=== PATIENT | male | born 1955 | race Caucasian/White ===

== ENCOUNTER 2018-02-17 06:11 | Day surgery (SDC) | payer BC ==
[2018-02-16 12:06] VITALS: BMI 33.9
[~2018-02-17 06:11] MED LIST: BUPIVACAINE HCL/PF 0.25% (2.5MG/ML) 10 ML VIAL IJ ONE; LIDO 2%/EPI 1:200000 PRESRVFRE (20 ML SDVIAL) INF ONE; ceFAZolin SODIUM 1 GM VIAL IVPB ONE
[2018-02-17] MEDS ORDERED: BUPIVACAINE HCL/PF 0.25% (2.5MG/ML) 10 ML VIAL ONE (07:15)
[2018-02-17] MEDS ORDERED: LIDOCAINE 1%/EPI 1:100000 (20 ML MULTI DOSE VIAL) ONE (07:15)
[2018-02-17] MEDS ORDERED: MIDAZOLAM HCL 2 MG/2 ML SINGLE DOSE VIAL ONE (07:45)
[2018-02-17] MEDS ORDERED: SEVOFLURANE 250 ML BTL ONE (08:01)
[2018-02-17] MEDS ORDERED: DESFLURANE GAS 240 ML BOTTLE IH ONE (08:01)
[2018-02-17] MEDS ORDERED: DEXAMETHASONE SOD PHOSPHATE 4 MG/1 ML VIAL ONE (08:16)
[2018-02-17] MEDS ORDERED: LIDOCAINE HCL/PF 2% SDV 5ML VIAL ONE (08:17)
[2018-02-17] MEDS ORDERED: PROPOFOL 20 ML ONE (08:17)
[2018-02-17] MEDS ORDERED: LIDO 2%/EPI 1:200000 PRESRVFRE (20 ML SDVIAL) INF ONE (08:28)
[2018-02-17] MEDS ORDERED: BUPIVACAINE HCL/PF 0.25% (2.5MG/ML) 10 ML VIAL IJ ONE (08:28)
[2018-02-17] MEDS ORDERED: ONDANSETRON 4 MG/2 ML VIAL IVPUSH PRN (08:52)
[2018-02-17] MEDS ORDERED: oxyCODONE HCL 5 MG TABLET PO PRN (08:52)
[2018-02-17] MEDS ORDERED: LACTATED RINGERS SOLUTION 1,000 ML IV SCH (09:00)
--- NOTE | 2018-02-17 09:14 | OP ---
Operative Note - Note: Operative Date: 02/17/18 Pre-Operative Diagnosis: internal drangement right knee Operation: arthroscopy right knee with partial MM Post-Operative Diagnosis: Same as Pre-op Surgeon: Donald Rodriguez Scrape Gatherer: Rene Montalvo Anesthesia: General Estimated Blood Loss (mls): 0 Operative Report Dictated: Yes
--- NOTE | 2018-02-17 09:20 | HP ---
Satellite [facility] - Chief Complaint Chief Complaint: right knee pain - Past Medical History Allergies/Adverse Reactions: Allergies Allergy/AdvReac Type Severity Reaction Status Date / Time bee venom protein (honey bee) Allergy Severe Difficulty Verified 02/16/18 12:06 Breathing - Current Medications Current Medications: Home Medications Medication Instructions Recorded Ascorbic Acid [Vitamin C] 1,000 mg PO DAILY 02/16/18 Cholecalciferol (Vitamin D3) 1,000 unit PO DAILY 02/16/18 [Vitamin D3] Tadalafil [Cialis] 5 mg PO DAILY 02/16/18 Tamsulosin HCl [Flomax] 0.4 mg PO HS 02/16/18 Oxycodone HCl/Acetaminophen 1 tab PO Q6H #10 tablet MDD 4 02/17/18 [Percocet 5-325 mg Tablet] Satellite Physical Exam - Physical Examination Vital Signs: Vital Signs Period Temp Pulse Resp BP Sys/[place] Pulse Ox Last 24 Hr 98.0 F-98.0 F 73-73 20-20 108-108/68-68 98 General Appearance: Well Nourished, Well Developed, Alert & Oriented x3 ENT: Clear Lung: Normal air movement Heart: Regular rate & rhythm Extremities: Other (right knee- + swelling, + ttp, decr rom, + mcmurrays, nvi MRi + mmt) Neurological: Intact, Alert, Oriented Satellite Impression/Plan - Impression/Plan Impression: right knee internal derangement Operative Procedure: right knee arthroscopy Date to be Performed: 02/17/18
[2018-02-17 10:37] VITALS: TEMP 97.5
--- NOTE | 2018-02-17 11:09 | SPEC ---
DATE OF OPERATION: 02/17/2018 PREOPERATIVE DIAGNOSIS: Internal derangement, right knee. POSTOPERATIVE DIAGNOSIS: Internal derangement, right knee. PROCEDURE: Arthroscopy, right knee, and partial medial meniscectomy. SURGICAL ATTENDING: Donald Rodriguez MD DIRECTOR [facility]: Rene Montalvo MD ANESTHESIA: General with LMA. CLOSURE: 4-0 nylon. COMPLICATIONS: None. CONDITION: To recovery room in stable condition. DESCRIPTION OF OPERATIVE PROCEDURE: Patient was taken to the operating room on February 17, 2018. General anesthesia with LMA was administered by the anesthesiologist. The right lower extremity was prepped and draped in the usual sterile fashion. The medial and lateral infrapatellar portal sites were infiltrated with 1% Xylocaine with epinephrine. Both portals were then made with a 15 blade followed by a blunt trocar. The scope was placed in the lateral infrapatellar portal and up into the suprapatellar pouch. The knee was inflated with a cocktail of 10 mL of 1% Xylocaine, 10 mL of 0.5% Marcaine, and 20 mL of arthroscopic saline. This was allowed to sit in the knee for a few minutes to allow the anesthetic to work intraarticularly. The scope was placed in the lateral infrapatellar portal and up into the suprapatellar pouch. The pouch was visualized to be clean. The medial and lateral gutters were visualized to be clean. The undersurface of the patella and trochlea were visualized to be intact. With valgus stress on the knee, the medial compartment was entered. The medial meniscus was visualized, probed, and found to have a complex tear of the posterior horn. This was debrided back to smooth stable meniscal tissue using a meniscal biter and arthroscopic shaver. The medial femoral condyle was run and found to be intact as well as the medial tibial plateau. At 90 degrees, the ACL was visualized, probed, and found to be intact. In the figure 4 position, the lateral compartment was entered. The lateral meniscus was visualized, probed, and found to be intact. The lateral femoral condyle was run and found to be intact as was the lateral tibial plateau. The knee was irrigated with copious amounts of irrigation and then the fluid was drained. The inferomedial portal was closed then with 4-0 nylon. Prior to pulling the trocar from the lateral infrapatellar portal, 20 mL of 0.5% Marcaine was infused into the knee for postoperative analgesia. The trocar was then pulled and the incision was closed with 4-0 nylon suture. A sterile pressure dressing was applied. Patient awakened from anesthesia and transferred to recovery in stable condition. No complication. Estimated blood loss negligible. Wild [id number]
[2018-02-17 11:16] VITALS: BP 112/70; PULSE 66
--- NOTE | 2018-02-18 16:31 | PATH ---
Surgical Pathology Report Patient Name: DIPAK LORENZO [facility]. Rec. #: [id number] /Age/Gender: 1955 (Age: 62) / M Account: [id number] Location: [facility] SUR[facility]ICAL Taken: 02/17/2018 Received: 02/17/2018 Reported: 02/18/2018 Physicians: Wild Villalpando M.D. Specimen(s) Received RIGHT KNEE SHAVINGS Clinical History Right knee tear, internal derangement Final Diagnosis RIGHT KNEE, SHAVINGS: SYNOVIAL TISSUE, BONE, AND FIBROCARTILAGINOUS TISSUE WITH DEGENERATIVE CHANGE. Electronically Signed Charley Anna M.D. Gross Description Received in formalin, labeled "right knee shavings," is a 4 x 2 x 1 cm. aggregate of eisenberg-yellow soft tissue fragments. A cash applications representative portion is submitted in one cassette. CESIA/02/17/2018 radha/02/17/2018
== END 2018-02-17 11:15 | disposition home or self-care (01) ==
LOC: JASU-SURG 06:11
PROVIDERS: ATTEND Orthopaedic Surgery
PROC: 0SBC4ZZ Excision of Right Knee Joint, Percutaneous Endoscopic Approach (ICD-10-PCS; principal; 2018-02-17 08:00)
DX: M23.91 Unspecified internal derangement of right knee (principal)
CPT/HCPCS: 88304-TC; 94760

== ENCOUNTER 2021-02-06 07:32 | Emergency (ER) | payer BC, OTHER ==
[2021-02-06 08:12] VITALS: BP 124/78; PULSE 62; TEMP 98.6; BMI 32.3
[2021-02-06 08:42] LABS: HEMATOCRIT 43.3 % (35.4-49); HEMOGLOBIN 15.3 GM/dL (11.7-16.9); MCH 32.3 pg (25.7-33.7); MCHC 35.3 g/dl (32.0-35.9); MEAN CELL VOLUME 91.6 fl (80-96); MEAN PLT VOLUME 7.6 fl (7.5-11.1); PLATELET COUNT 224 K/MM3 (134-434); RBC 4.72 M/mm3 (4.00-5.60); RDW 13.1 % (11.9-15.9); WHITE BLOOD COUNT 5.6 K/mm3 (4.0-10.0)
[2021-02-06 09:08] LABS: BLOOD UREA NITROGEN 22.1 mg/dL (7-18); CALCIUM 8.7 mg/dL (8.5-10.1)
[2021-02-06 09:09] LABS: ALBUMIN 3.7 g/dl (3.4-5.0)
[2021-02-06 09:12] LABS: CREATININE 0.8 mg/dL (0.55-1.3)
[2021-02-06 09:13] LABS: BILIRUBIN,TOTAL 0.8 mg/dL (0.2-1); TOT PROT 6.7 g/dl (6.4-8.2)
[2021-02-06 09:32] LABS: EPI CELLS 14 /uL (0-25.1); HYALINE CASTS 3 /uL (0-3.1); URINE APPEARANCE CLEAR; URINE BACTERIA 14 /uL (0-1359); URINE BILIRUBIN NEGATIVE (NEGATIVE); URINE COLOR YELLOW; URINE GLUCOSE (UA) NEGATIVE (NEGATIVE); URINE KETONE NEGATIVE (NEGATIVE); URINE LEUK ESTERASE 1+ (NEGATIVE); URINE NITRITE NEGATIVE (NEGATIVE); URINE PROTEIN NEGATIVE (NEGATIVE); URINE RBC 107 /uL (0-23.9); URINE UROBILINOGEN 0.2 mg/dL (0.2-1.0); URINE WBC 24 /uL (0-25.8)
[2021-02-06 10:47] LABS: ANISOCYTOSIS 0; MACROCYTOSIS 0; PLATELET ESTIMATE NORMAL
== END 2021-02-06 11:01 | disposition left against medical advice (07) ==
LOC: JER 07:32
DX: R10.31 Right lower quadrant pain (principal)
CPT/HCPCS: 36415; 74176-TC; 80053; 81003; 85025; 87086; 99284-25

== ENCOUNTER 2021-05-17 14:12 | Emergency (ER) | payer BC, OTHER | END 2021-05-17 17:49 | disposition home or self-care (01) | LOC: JVIRT 14:12 | DX: U07.1 COVID-19 (principal) | CPT/HCPCS: C9803; Q3014-GT; U0003; U0005 ==

== ENCOUNTER 2021-05-18 10:50 | Emergency (ER) | payer BC, OTHER ==
[2021-05-18] MEDS ORDERED: CASIRIVIMAB/IMDEVIMAB 10 ML in SODIUM CHLORIDE 100 ML IVPB ONE (11:20)
[2021-05-18 11:53] VITALS: TEMP 98.4; BMI 33.9
[2021-05-18 12:23] LABS: BASO % 0.2 % (0-2.0); EOS % 0.9 % (0-4.5); HEMATOCRIT 42.4 % (35.4-49); HEMOGLOBIN 15.3 GM/dL (11.7-16.9); LYMPH % 32.5 % (8-40); MCH 32.3 pg (25.7-33.7); MEAN CELL VOLUME 89.7 fl (80-96); MEAN PLT VOLUME 7.6 fl (7.5-11.1); MONO % 13.6 % (3.8-10.2); NEUT % 52.8 % (42.8-82.8); PLATELET COUNT 185 10^3/uL (134-434); RBC 4.73 M/mm3 (4.00-5.60); RDW 12.8 % (11.9-15.9); WHITE BLOOD COUNT 3.5 K/mm3 (4.0-10.0)
[2021-05-18 12:44] LABS: BLOOD UREA NITROGEN 16.2 mg/dL (7-18); CALCIUM 8.2 mg/dL (8.5-10.1)
[2021-05-18 12:47] LABS: CREATININE 0.7 mg/dL (0.55-1.3)
[2021-05-18 13:11] VITALS: BP 114/55; PULSE 63
== END 2021-05-18 13:57 | disposition home or self-care (01) ==
LOC: JER 10:50
DX: U07.1 COVID-19 (principal)
CPT/HCPCS: 36415; 80048; 85025; 99284-25; M0240; Q0240

== ENCOUNTER 2022-01-23 14:53 | Emergency (ER) | payer BC ==
[2022-01-23 15:21] VITALS: BP 127/71; PULSE 68; TEMP 98.7; BMI 35.5
== END 2022-01-23 17:09 | disposition home or self-care (01) ==
LOC: FER 14:53
DX: M79.641 Pain in right hand (principal)
CPT/HCPCS: 73110-TC-RT-FY; 73130-TC-RT-FY; 93971; 99284-25